=== PATIENT | male | born 1965 | race African-American/Black ===

== ENCOUNTER 2017-06-27 02:16 | Inpatient (IN) | payer OTHER ==
[~2017-06-27] VITALS: Ht 182.9 cm; Wt 91.2 kg
[2017-06-27] MEDS ORDERED: SODIUM CHLORIDE 0.9% 1,000 ML IV ONE (02:40)
[2017-06-27] MEDS ORDERED: LORAZEPAM 2MG/ML CPJ IV ONE ×2 (02:45→06:00)
[2017-06-27 03:14] LABS: BASOPHILS % 0.8 % (0.0-2.0); EOSINOPHILS % 3.4 % (0.0-5.0); HEMATOCRIT. 40.8 % (42.0-52.0); HEMOGLOBIN. 13.4 g/dL (14.0-18.0); MEAN CORPUSCULAR HEMOGLOBIN 27.4 pg (28.0-32.0); MEAN CORPUSCULAR VOLUME 83.3 fL (80.0-94.0); MONOCYTES % 7.1 % (2.0-8.0); NEUTROPHILS % 76.7 % (40.0-76.0); PLATELET 217 x1000/uL (130-400); RED CELL DISTRIBUTION WIDTH 14.2 % (11.6-14.6)
[2017-06-27 03:30] LABS: CARBON DIOXIDE 25 mEq/L (21-32); CHLORIDE 97 mEq/L (98-107); CREATINE KINASE 296 IU/L (39-308); ETHANOL BLOOD < 10 mg/dL; TROPONIN I < 0.02 ng/mL (0.00-0.04)
[2017-06-27 03:32] LABS: AMMONIA 52 uMol/L (<32)
[2017-06-27 03:38] LABS: CARBAMAZEPINE < 0.5 ug/mL (4-12); PHENOBARBITAL < 2.1 ug/mL (15.0-40.0)
[2017-06-27] MEDS ORDERED: SODIUM CHLORIDE 0.9% 1000ML BAG (SEPSIS BOLUS) IV SCH (04:15)
[2017-06-27] MEDS ORDERED: INSULIN REGULAR (HUMULIN R) 300UNITS/3ML IV SCH (04:15)
[2017-06-27] MEDS ORDERED: LABETALOL HCL 20MG/4ML CARPUJECT IV ONE (05:00)
[2017-06-27] MEDS ORDERED: LEVETIRACETAM 1,000 MG in SODIUM CHLORIDE 0.9% 100 ML IV SCH (05:00)
[2017-06-27 05:38] LABS: *AMPHETAMINES SCREEN URINE NEGATIVE (NEGATIVE); *BARBITURATES SCREEN URINE NEGATIVE (NEGATIVE); *BENZODIAZEPINES SCREEN URINE PRESUMTIVE POSITIVE (NEGATIVE); *COCAINE SCREEN URINE NEGATIVE (NEGATIVE); CANNABINOID URINE SCREEN NEGATIVE (NEGATIVE); METHADONE URINE SCREEN NEGATIVE (NEGATIVE); OPIATES URINE SCREEN NEGATIVE (NEGATIVE); PHENCYCLIDINE URINE SCREEN NEGATIVE (NEGATIVE)
[2017-06-27] MEDS ORDERED: LABETALOL 5MG/ML SYR 20 MG/4 ML SYRINGE IV SCH (05:53)
[2017-06-27] MEDS ORDERED: HYDRALAZINE 20MG/ML VIAL IV SCH (08:50)
[2017-06-27 10:05] VITALS: BP 162/102
[2017-06-27 10:10] VITALS: BP 162/104
[2017-06-27 10:15] VITALS: BP 168/102
[2017-06-27] MEDS ORDERED: LORAZEPAM 2MG/ML CPJ IV PRN (11:30)
[2017-06-27] MEDS ORDERED: DIPHENHYDRAMINE 50MG/ML VIAL IV PRN (11:30)
[2017-06-27] MEDS ORDERED: DOCUSATE SODIUM 100MG CAPSULE PO PRN (11:30)
[2017-06-27] MEDS ORDERED: ACETAMINOPHEN 325MG TABLET PO PRN (11:30)
[2017-06-27] MEDS ORDERED: ONDANSETRON HCL 4MG/2ML VIAL IV PRN (11:30)
[2017-06-27] MEDS: AMLODIPINE 10MG TABLET PO SCH (11:50)
[2017-06-27] MEDS: CLONIDINE 0.1MG TABLET PO PRN (11:50)
[2017-06-27] MEDS: SODIUM CHLORIDE 0.9% 1,000 ML IV SCH (11:51)
[2017-06-27 12:00] VITALS: BP 171/91
[2017-06-27] MEDS ORDERED: DEXTROSE 50% WATER 50ML SYRINGE IV PRN (12:30)
[2017-06-27] MEDS: BLOOD SUGAR DIAGNOSTIC STRIP TEST SCH ×3 (12:48→21:08)
[2017-06-27] MEDS: INSULIN LISPRO 100 UNITS/ML SUBCUT SCH ×3 (12:52→21:00)
[2017-06-27 16:00] VITALS: BP 139/88
[2017-06-27 20:00] VITALS: BP 144/84
[2017-06-28] VITALS: BP 168/89
[2017-06-28] MEDS: SODIUM CHLORIDE 0.9% 1,000 ML IV SCH ×3 (00:50→14:10)
[2017-06-28 04:00] VITALS: BP 130/67
[2017-06-28 06:58] LABS: BASOPHILS % 0.3 % (0.0-2.0); EOSINOPHILS % 2.6 % (0.0-5.0); HEMATOCRIT. 39.4 % (42.0-52.0); HEMOGLOBIN. 12.7 g/dL (14.0-18.0); LYMPHOCYTES % 14.8 % (20.0-50.0); MEAN CORPUSCULAR HEMOGLOBIN 26.4 pg (28.0-32.0); MEAN CORPUSCULAR VOLUME 81.9 fL (80.0-94.0); MEAN PLATELET VOLUME 9.2 fl (7.4-10.4); MONOCYTES % 9.8 % (2.0-8.0); NEUTROPHILS % 72.5 % (40.0-76.0); PLATELET 212 x1000/uL (130-400); RED BLOOD CELL COUNT 4.81 mill/uL (4.7-6.1); RED CELL DISTRIBUTION WIDTH 14.5 % (11.6-14.6)
[2017-06-28 07:41] LABS: CARBON DIOXIDE 22 mEq/L (21-32); CHLORIDE 106 mEq/L (98-107)
[2017-06-28 07:43] LABS: HDL CHOLESTEROL 41 mg/dL (40-59); LDL CHOLESTEROL 179 mg/dL (5-100)
[2017-06-28 08:00] VITALS: BP 136/97
[2017-06-28] MEDS: BLOOD SUGAR DIAGNOSTIC STRIP TEST SCH ×4 (08:10→19:58)
[2017-06-28] MEDS: ASPIRIN 81MG EC TABLET PO SCH (09:24)
[2017-06-28] MEDS: AMLODIPINE 10MG TABLET PO SCH (09:24)
[2017-06-28] MEDS: INSULIN LISPRO 100 UNITS/ML SUBCUT SCH ×4 (09:26→20:04)
[2017-06-28 12:00] VITALS: BP 126/89
[2017-06-28 16:00] VITALS: BP 168/93
[2017-06-28] MEDS: CLONIDINE 0.1MG TABLET PO PRN (16:30)
[2017-06-28 20:00] VITALS: BP 161/92
[2017-06-28] MEDS ORDERED: ATORVASTATIN CALCIUM 40MG TABLET PO SCH (21:00)
[2017-06-29] VITALS: BP 126/88
[2017-06-29] MEDS: SODIUM CHLORIDE 0.9% 1,000 ML IV SCH (03:30)
[2017-06-29 04:00] VITALS: BP 138/86
[2017-06-29] MEDS: BLOOD SUGAR DIAGNOSTIC STRIP TEST SCH ×2 (06:20→12:40)
[2017-06-29 08:00] VITALS: BP 117/87
[2017-06-29] MEDS: INSULIN LISPRO 100 UNITS/ML SUBCUT SCH ×2 (08:39→13:03)
[2017-06-29] MEDS: AMLODIPINE 10MG TABLET PO SCH (09:42)
[2017-06-29] MEDS: ASPIRIN 81MG EC TABLET PO SCH (09:42)
== END 2017-06-29 13:05 | disposition left against medical advice (07) | DRG 101 ==
LOC: ER 02:24 → 7WST 04:15 → EDBEDREQ 05:35 → CANRESERV 07:01 → ENRESERV 07:01 → UNDODISIN 06-29 13:05
PROVIDERS: ADMIT Hospitalist; ATTEND Hospitalist
DX: G40.909 Epilepsy, unspecified, not intractable, without status epilepticus (principal); N17.9 Acute kidney failure, unspecified; E87.2 Acidosis; E72.20 Disorder of urea cycle metabolism, unspecified; M62.82 Rhabdomyolysis; G95.9 Disease of spinal cord, unspecified; Z53.21 Procedure and treatment not carried out due to patient leaving prior to being seen by health care provider; R73.9 Hyperglycemia, unspecified; I10 Essential (primary) hypertension; E78.5 Hyperlipidemia, unspecified; Z82.49 Family history of ischemic heart disease and other diseases of the circulatory system
CPT/HCPCS: 36415; 70450; 71010; 72125; 80053; 80061; 80156; 80165; 80184; 80185; 80305; 82140; 82550; 82962; 83036; 83605; 83690; 84484; 85025; 85610; 93005; 93970; 96361; 96374; 96375; 99285; G0482; J0360; J1815; J1953; J2060; J3490; J7030; J7050